=== PATIENT | male | born 1975 | race Caucasian/White ===

== ENCOUNTER 2025-01-16 09:14 | Day surgery (SDC) | payer OTHER ==
[2025-01-13 14:43] VITALS: BMI 23.7
[2025-01-16] MEDS ORDERED: MIDAZOLAM HCL 2 MG/2 ML SINGLE DOSE VIAL ONE (09:17)
[2025-01-16] MEDS ORDERED: PROPOFOL 40 ML ONE (09:18)
[2025-01-16] MEDS ORDERED: LIDOCAINE HCL/PF 2% SDV 5ML VIAL ONE (09:21)
[2025-01-16] MEDS ORDERED: EPINEPHrine 1:1000 P/F - 1 MG/ML AMP ONE (10:18)
[2025-01-16] MEDS ORDERED: LIDOCAINE HCL 2% (20ML MULTI-DOSE VIAL) ONE (10:18)
[2025-01-16] MEDS ORDERED: BUPIVACAINE HCL/EPINEPHRINE/PF 30 ML VIAL IJ ONE (10:18)
[2025-01-16] MEDS ORDERED: SODIUM BICARBONATE 8.4% 50 MEQ/50 ML VIAL ONE (10:18)
[2025-01-16] MEDS ORDERED: ONDANSETRON 4 MG/2 ML VIAL IVPUSH PRN (10:34)
[2025-01-16] MEDS ORDERED: LACTATED RINGERS SOLUTION 1,000 ML IV SCH (10:45)
[2025-01-16] MEDS ORDERED: ceFAZolin SODIUM 1 GM VIAL ONE (11:30)
[2025-01-16] MEDS ORDERED: DEXAMETHASONE SOD PHOSPHATE 4 MG/1 ML VIAL ONE (11:31)
[2025-01-16] MEDS ORDERED: MUPIROCIN 2% TOPICAL OINTMENT FOR DECOLONIZATION NS ONE (12:59)
[2025-01-16] MEDS ORDERED: BSS (NA/CA/MG/K) BALANCED SALT SOLUTION OPHTH SOLN 15 ML BOTTLE ONE (13:10)
[2025-01-16] MEDS ORDERED: ACETAMINOPHEN INJECTION 100 ML ONE (13:40)
[2025-01-16] MEDS: ACETAMINOPHEN 1000 MG/100 ML BAG IVPB ONE (13:52)
[2025-01-16] MEDS ORDERED: FENTANYL CITRATE/PF 50 MCG/ML VIAL ONE (14:19)
[2025-01-16] MEDS: oxyCODONE HCL 5 MG TABLET PO PRN (14:45)
[2025-01-16] MEDS ORDERED: oxyCODONE HCL 10 MG SUSTAINED ACTING TABLET ONE (14:45)
[2025-01-16 15:04] VITALS: PULSE 64; TEMP 97.9
[2025-01-16 15:18] VITALS: BP 132/84; RESP 19
== END 2025-01-16 15:40 | disposition home or self-care (01) ==
LOC: FASU 09:14
PROVIDERS: ATTEND Plastic Surgery
PROC: 08SP0ZZ Reposition Left Upper Eyelid, Open Approach (ICD-10-PCS; 2025-01-16)
PROC: 0HX1XZZ Transfer Face Skin, External Approach (ICD-10-PCS; 2025-01-16)
PROC: 0JU137Z Supplement of Face Subcutaneous Tissue and Fascia with Autologous Tissue Substitute, Percutaneous Approach (ICD-10-PCS; principal; 2025-01-16 11:48)
PROC: 0QP104Z Removal of Internal Fixation Device from Sacrum, Open Approach (ICD-10-PCS; 2025-01-16 11:48)
DX: S02.40B Malar fracture, left side (principal); X58.XXXS Exposure to other specified factors, sequela; H02.402 Unspecified ptosis of left eyelid; M95.2 Other acquired deformity of head
CPT/HCPCS: 88300-TC; 88305-TC; 94760; J0131